=== PATIENT | female | born 1995 | race Caucasian/White ===

== ENCOUNTER 2021-11-18 13:21 | Emergency (ER) | payer MEDICAID ==
[~2021-11-18] VITALS: Ht 160 cm; Wt 82.0 kg
[2021-11-18 14:31] VITALS: BP 112/69
[2021-11-18] MEDS ORDERED: IBUPROFEN 800MG TABLET PO ONE (15:00)
[2021-11-18] MEDS ORDERED: IBUP-2029 MT (16:29)
[2021-11-18] MEDS ORDERED: T3 PO (16:29)
== END 2021-11-18 18:25 | disposition home or self-care (01) ==
LOC: ER 13:21
DX: S82.401A Unspecified fracture of shaft of right fibula, initial encounter for closed fracture (principal); W18.30XA Fall on same level, unspecified, initial encounter; Y93.89 Activity, other specified; Y92.89 Other specified places as the place of occurrence of the external cause; Y99.8 Other external cause status
CPT/HCPCS: 73562; 73590; 99284; L1830